=== PATIENT | male | born 1950 ===

== ENCOUNTER → 2023-05-22 07:33 | Outpatient (REF) | payer OTHER, SELFPAY | LOC: EMG 07:33 | PROVIDERS: ATTENDING PHYSICIAN Physical Medicine & Rehabilitation; FAMILY PHYSICIAN Nurse Practitioner Gerontology | DX: M54.16 Radiculopathy, lumbar region (principal); M48.061 Spinal stenosis, lumbar region without neurogenic claudication; M21.371 Foot drop, right foot; R20.0 Anesthesia of skin | CPT/HCPCS: 95886; 95908 ==

== ENCOUNTER → 2023-07-20 11:16 | Outpatient (REF) | payer OTHER, SELFPAY | LOC: HWRAD 11:16 | PROVIDERS: ATTENDING PHYSICIAN Physician Assistant Medical; FAMILY PHYSICIAN Nurse Practitioner Gerontology | DX: M48.061 Spinal stenosis, lumbar region without neurogenic claudication (principal) | CPT/HCPCS: 72110; 72131 ==

== ENCOUNTER → 2023-08-15 15:28 | Outpatient (REF) | payer OTHER, SELFPAY | LOC: MRI 3T 15:28 | PROVIDERS: ATTENDING PHYSICIAN Physician Assistant Medical; FAMILY PHYSICIAN Nurse Practitioner Gerontology | DX: M48.061 Spinal stenosis, lumbar region without neurogenic claudication (principal) | CPT/HCPCS: 72148 ==